=== PATIENT | male | born 1995 | race Caucasian/White ===

== ENCOUNTER 2018-02-21 02:05 | Emergency (ER) | payer BC, OTHER ==
[~2018-02-21] VITALS: Ht 188 cm; Wt 70.3 kg
[~2018-02-21 02:05] MED LIST: CEPH500C PO; HYDR1TAB PO; MUPI22OI TP
[2018-02-21] MEDS ORDERED: ORPHENADRINE 60 MG/2 ML (NORFLEX) AMP IM ONE (02:30)
[2018-02-21] MEDS ORDERED: KETOROLAC 30 MG/ML VIAL IM ONE (02:30)
[2018-02-21] MEDS ORDERED: PRD20T PO (02:55)
--- NOTE | 2018-02-21 02:58 | ED Back Pain ---
General Chief Complaint: Back Problems Stated Complaint: LOWER BACK PAIN Nursing Triage Note: AMBULATORY TO ED WITH C/O BACK PAIN FROM MID TO LOWER BACK THAT "FEELS LIKE A SUNBURN WITH PINS AND NEEDLES AND THE OCCASIONAL LIGHTENING SHOCK FEELING" PER PT. 6 YRS AGO HE HAD A WORK INJURY, BUT NEVER HAD BACK INJURY WORKED UP. PAIN STARTED GETTING WORSE SUNDAY NIGHT. FEELS LIKE HE IS BEING SHOCKED AT TIMES AND HAS TINGLING IN ARMS AND HANDS. Nursing Sepsis Screen: No Definite Risk Source of Information: Patient Exam Limitations: No Limitations History of Present Illness Date Seen by Provider: Feb 21, 2018 Time Seen by Provider: 02:20 Initial Comments This 22-year-old young man presents to the emergency room with complaints of mid and lower back pain for 6 years. See history as documented by nursing triage above. Patient states 4 days ago the pain became much more severe. He complains of a shock sensation down his arms intermittently. Symptoms seemed to start 6 years ago when he had a workplace head and back injury. He has had plain x-rays performed of his back at the [facility] but has not had CT or MRI imaging. He does not see a primary care provider for this problem. He takes ibuprofen and Aleve for general pain management. He denies any weakness of the legs or bowel or bladder dysfunction. Allergies and Home Medications Allergies Coded Allergies: No Known Allergies (Unverified Allergy, Mild, 02/09/09) Home Medications Prednisone 20 Mg Tab, 1 TAB PO DAILY Prescribed by: MARILEE SHAFFER on 02/21/18 0255 Patient Home Medication List Home Medication List Reviewed: Yes Review of Systems Constitutional: no symptoms reported EENTM: no symptoms reported Respiratory: no symptoms reported Cardiovascular: no symptoms reported Gastrointestinal: no symptoms reported Genitourinary: no symptoms reported Musculoskeletal: see HPI Skin: no symptoms reported Psychiatric/Neurological: See HPI Past Dmyrnui-Shwpsb-[id number] Hx Past Med/Social Hx: Reviewed and Corrections made Patient Social History Alcohol Use: Occasionally Uses Recreational Drug Use: No Smoking Status: Former Smoker Type Used: Cigarettes Recent Foreign Travel: No Contact w/Someone Who Travel: No Recent Infectious Disease Expo: No Recent Hopitalizations: No Immunizations Up To Date Date of Influenza Vaccine: Nov 05, 2017 Seasonal Allergies Seasonal Allergies: No Past Medical History Surgeries: Yes Tonsillectomy Respiratory: No Cardiac: No Neurological: No Genitourinary: No Gastrointestinal: No Musculoskeletal: Yes Chronic Back Pain Endocrine: No HEENT: No Cancer: No Psychosocial: No Integumentary: No Blood Disorders: No Adverse Reaction/Blood Tranf: No Physical Exam Vital Signs Vital Signs - First Documented 02/21/18 02/21/18 02:16 03:04 Temp 98.2 Pulse 83 Resp 17 B/P (MAP) 131/90 (104) Pulse Ox 98 O2 Delivery Room Air Capillary Refill : Less Than 3 Seconds Height, Weight, BMI Height: 6'2.00" Weight: 155lbs. oz. 70.726347kh; BMI Method:Stated General Appearance: No Apparent Distress, WD/WN HEENT: PERRL/EOMI, Normal ENT Inspection Neck: Normal Inspection, Non Tender Cardiovascular: Regular Rate, Rhythm, No Edema, No Murmur Respiratory: Lungs Clear, Normal Breath Sounds, No Accessory Muscle Use Back: Normal Inspection, No Vertebral Tenderness, Other (Generalized mild discomfort with palpation with no focal tenderness) Extremity: Normal Inspection, Non Tender, No Pedal Edema Neurologic/Psychiatric: Alert, Oriented x3, No Motor/Sensory Deficits, Normal Mood/Affect, patch setter II-XII Norm as Tested Skin: Normal Color, Warm/Dry Progress/Results/Core Measures Results/Orders My Orders Orders - MARILEE BAEZ MD Ketorolac Injection (Toradol Injection) (02/21/18 02:30) Orphenadrine Injection (Norflex Injectio (02/21/18 02:30) Medications Given in ED Vital Signs/I&O 02/21/18 02/21/18 02:16 03:04 Temp 98.2 98.2 Pulse 83 83 Resp 17 17 B/P (MAP) 131/90 (104) 131/90 (104) Pulse Ox 98 O2 Delivery Room Air Blood Pressure Mean: 104 Progress Progress Note : Progress Note Patient was treated with Toradol and Norflex with moderate improvement. Prednisone was prescribed. Follow-up with a primary care provider for management of chronic pain was advised. Departure Impression Primary Impression: Chronic back pain Qualified Codes: M54.6 - Pain in thoracic spine; G89.29 - Other chronic pain Additional Impression: Paresthesia Disposition: 01 HOME, SELF-CARE Condition: Improved Departure-Patient Inst. Decision time for Depature: 02:54 Referrals: CHANELLE ALDANA MD (PCP/Family) Primary Care Physician Patient Instructions: MANAGING YOUR CHRONIC PAIN, Upper Back Pain (DC) Add. Discharge Instructions: For primary pain control take ibuprofen up to 600 mg every 6 hours as needed and Tylenol (acetaminophen) up to 1000 mg every 6 hours as needed. The prednisone prescribed should help gradually reduce inflammation in your back. You should notice a significant improvement over the next few days. Avoid lifting, bending, and straining as much as possible until this exacerbation of pain improves. Gentle heat such as a heating pad on a low setting or a warm bath/shower may help tenths muscles relax. Follow-up with Dr. Aldana as soon as possible. Call his office in the morning for follow-up. Consider further imaging of the back such as MRI to evaluate the source of pain. Return to care if symptoms are worsening, especially if you develop weakness in your legs or difficulty controlling bowels or bladder. All discharge instructions reviewed with patient and/or family. Voiced understanding. Scripts Prednisone (Prednisone) 20 Mg Tab 1 TAB PO DAILY, #5 TAB Prov: MARILEE BAEZ MD 02/21/18 Copy Copies To 1: CHANELLE ALDANA MD, JOSHUA T MD Feb 21, 2018 02:58
[2018-02-21 03:04] VITALS: BP 131/90
== END 2018-02-21 03:04 | disposition home or self-care (01) ==
LOC: EDUNIT# 02:05 → ER 02:10
DX: M54.5 Low back pain (principal); G89.29 Other chronic pain; R20.2 Paresthesia of skin; Z79.52 Long term (current) use of systemic steroids; Z87.891 Personal history of nicotine dependence; Z90.89 Acquired absence of other organs
CPT/HCPCS: 99284

== ENCOUNTER 2018-04-17 01:49 | Emergency (ER) | payer OTHER ==
[~2018-04-17 01:49] MED LIST changes: +PRD20T PO
--- NOTE | 2018-04-17 02:00 | NUR ---
CAME TO WAITING ROOM, CALLED PT'S NAME THREE TIMES, ADVISED BY REGISTRATION STAFF THAT THE PT APPROACHED TO WINDOW AND STATED THEY WERE GOING TO GO TO [facility] IN THE AM AND DID NOT WISH TO BE SEEN
== END 2018-04-17 02:00 | disposition home or self-care (01) ==
LOC: EDUNIT# 01:49 → ER 01:51
DX: Z20.2 Contact with and (suspected) exposure to infections with a predominantly sexual mode of transmission (principal)